=== PATIENT | female | born 1985 | race Two or more races ===

== ENCOUNTER 2016-06-15 15:39 | Inpatient (IN) | payer MEDICAID ==
[2016-06-15 15:58] VITALS: BP 121/68
--- NOTE | 2016-06-15 16:12 | ED Physician Chart ---
Chief Complaint/HPI - Patient Information Date Seen:: 06/15/16 Time Seen:: 16:07 Chief Complaint:: abd p History of Present Illness:: pt her for abd p x 3 hrs. pain is sev burning in ruq. pt gets similar pain about 4x/month. she admits to a hx of gallstones but cant tell me much more. she has apparently not bee to a surgeon and is not connected to a pmd. she has had sev trips to other EDs for this pain but is vague about the history. pt speaks sp...however even w friend interpreting ther is not much flow of information about prior workup. ? if fever. no diarhea, no constipation, no urine change Allergies:: Allergies Allergy/AdvReac Type Severity Reaction Status Date / Time No Known Allergies Allergy Verified 06/15/16 15:55 Vitals:: Vital Signs - 8 hr 06/15/16 15:58 BP 121/68 Historian:: Patient, Friend Review of Systems - Review of Systems General/Constitutional: No fever, No chills, No weight loss, No weakness, No diaphoresis, No edema, No loss of appetite Skin: No skin lesions, No rash, No bruising Head: No headache, No light-headedness Eyes: No loss of vision, No pain, No diplopia ENT: No earache, No nasal drainage, No sore throat, No tinnitus Neck: No neck pain, No swelling, No thyromegaly, No stiffness, No mass noted Cardio Vascular: No chest pain, No palpitations, No PND, No orthopnea, No edema Pulmonary: No SOB, No cough, No sputum, No wheezing GI: Nausea, Vomiting, No diarrhea, Pain, No melena, No hematochezia, No constipation, No hematemesis G/U: No dysuria, No frequency, No hematuria Musculoskeletal: No bone or joint pain, No back pain, No muscle pain Endocrine: No polyuria, No polydipsia Psychiatric: No prior psych history, No depression, No anxiety, No suicidal ideation Hematopoietic: No bruising, No lymphadenopathy Allergic/Immuno: No urticaria, No angioedema Neurological: No syncope, No focal symptoms, No weakness, No paresthesia, No headache, No seizure, No dizziness, No confusion, No vertigo Past Medical History - Past Medical History Past Medical History: Other (gallstones. (last 5yrs ago..denies current risk of gravd)) Social History: No Alcohol Medication: Reviewed Family Medical History - Family Member Aunt Ethnicity: Hx Family Diabetes: Yes Physical Exam - Physical Examination General/Constitutional: Awake, Well-developed, well-nourished, Alert, No distress, GCS 15, Non-toxic appearing, Ambulatory Other Gen/Cons comments:: mod obese. seems uncomfortable. nontoxic. alert. Head: Atraumatic Eyes: Lids, conjuctiva normal, PERRL, EOMI Skin: Nl inspection, No rash, No skin lesions, No ecchymosis, Well hydrated, No lymphadenopathy ENMT: External ears, nose nl, Nasal exam nl, Lips, teeth, gums nl Neck: Nontender, Full ROM w/o pain, No JVD, No nuchal rigidity, No bruit, No mass, No stridor Respiratory: Nl effort/Exclusion, Clear to Auscultation, No Wheeze/Rhonchi/Rales Cardio Vascular: RRR, No murmur, gallop, rubs, NL S1 S2 GI: No tenderness/rebounding/guarding, No organomegaly, No hernia, Normal BS's, Nondistended, No mass/bruits, No McBurney tenderness : No CVA tenderness Extremities: No tenderness or effusion, Full ROM, normal strength in all extremities, No edema, Normal digits & nails Neuro/Psych: Alert/oriented, DTR's symmetric, Normal sensory exam, Normal motor strength, Judgement/insight normal, Mood normal, Normal gait, No focal deficits Misc: normal gait, Normal back, No paraspinal tenderness Labs/Radiology/EKG Results - Lab Results Results: Laboratory Tests 06/15/16 06/15/16 06/15/16 16:18 16:18 16:18 WBC 8.5 RBC 4.55 Hgb 13.6 Hct 40.5 MCV 89.0 MCH 29.8 MCHC Differential 33.5 RDW 11.4 L Plt Count 265 MPV 8.2 Neutrophils % 79.8 Lymphocytes % 13.2 L Monocytes % 5.5 Eosinophils % 0.9 Basophils % 0.6 Sodium 135 L Potassium 3.6 Chloride 105 Carbon Dioxide 25.5 Anion Gap 8.1 BUN 13 Creatinine 0.6 Est GFR ( Amer) > 60.0 Est GFR (Non-Af Amer) > 60.0 BUN/Creatinine Ratio 21.7 Glucose 115 H Calcium 9.4 Total Bilirubin 0.5 AST 124 H ALT 61 H Alkaline Phosphatase 86 Total Protein 7.7 Albumin 4.5 Globulin 3.2 Albumin/Globulin Ratio 1.4 Lipase 53 - Radiology Results Results: us abd- gb is full of stones. pos rad wynn. borderline wall edema. no free fluid. us abd otw ok. ED Septic Shock - . Is Septic Shock (SBP<90, OR Lactate>4 mmol\L) present?: No - <6hrs of presentation: Vital Signs: Vital Signs - 8 hr 06/15/16 15:58 BP 121/68 Reassessment (Disposition) - Reassessment Reassessment:: (5;17p) results reviewed w pt. she still has pain now but better and refuses more pain med rt now. does want me to talk w intake drs. d/w dr sweet...6;52p....pt will admit. Reassessment Condition:: Improved - Diagnosis Diagnosis:: gallstones elevated LFTs biliary colic - Patient Disposition Admitted to:: Med/Surg Condition at Disposition:: Improved
[2016-06-15] MEDS ORDERED: Maalox 30 mL Cup PO ONE (16:13)
[2016-06-15] MEDS ORDERED: Sodium Chloride 0.9% 1,000 ML IV ONE (16:13)
[2016-06-15 16:33] LABS: % BASOPHILS 0.6 % (0.0-2.0); % EOSINOPHILS 0.9 % (0.0-5.0); % LYMPHOCYTES 13.2 % (20.0-50.0); % MONOCYTES 5.5 % (2.0-10.0); % NEUTROPHILS 79.8 % (40.0-80.0); HEMATOCRIT 40.5 % (35.0-45.0); HEMOGLOBIN 13.6 gm/dL (11.7-15.5); MEAN CORPUSCULAR HEMOGLOBIN 29.8 pg (27.0-31.0); MEAN CORPUSCULAR HGB CONC 33.5 pg (28.0-36.0); MEAN PLATELET VOLUME 8.2 fl; NEUTROPHILE ABSOLUTE 6.7 Th/cmm (1.8-8.0); PLATELET COUNT 265 Th/cmm (150-400); RED BLOOD COUNT 4.55 Mil/cmm (3.80-5.10); RED CELL DISTRIBUTION WIDTH 11.4 % (11.5-20.0); WHITE BLOOD COUNT 8.5 Th/cmm (4.8-10.8)
[2016-06-15 16:53] LABS: ALB/GLOB RATIO 1.4 (1.0-1.8); ALKALINE PHOSPHATASE 86 U/L (34-104); ANION GAP 8.1 (7.0-16.0); BILIRUBIN,TOTAL 0.5 mg/dL (0.3-1.0); BUN - UREA NITROGEN 13 mg/dL (7-25); BUN/CREATININE RATIO 21.7; CALCIUM SERUM 9.4 mg/dL (8.6-10.3); CARBON DIOXIDE 25.5 mEq/L (21.0-31.0); CHLORIDE 105 mEq/L (98-107); CREATININE - SERUM 0.6 mg/dL (0.6-1.2); GLUCOSE 115 mg/dL (70-105); POTASSIUM SERUM 3.6 mEq/L (3.5-5.1); SGOT 124 U/L (13-39); SGPT/ALT 61 U/L (7-52); SODIUM SERUM 135 mEq/L (136-145)
[2016-06-15] MEDS ORDERED: Maalox 30 mL Cup ONE (17:09)
[2016-06-15 19:02] LABS: URINE BILIRUBIN NEGATIVE (NEGATIVE); URINE BLOOD NEGATIVE (NEGATIVE); URINE COLOR YELLOW; URINE GLUCOSE (UA) NEGATIVE (NEGATIVE); URINE KETONE NEGATIVE (NEGATIVE); URINE PROTEIN NEGATIVE (NEGATIVE); URINE UROBILINOGEN 0.2 E.U./dL (0.2 - 1.0)
[2016-06-15 19:03] LABS: URINE BACTERIA NONE SEEN /hpf (NONE SEEN); URINE EPITHELIAL CELLS NONE SEEN /lpf (FEW); URINE RBC NONE SEEN /hpf (0-5)
[2016-06-15] MEDS: D5-0.45NS 1,000 ML IV ONE (21:30)
--- NOTE | 2016-06-16 00:12 | Admit Criteria Form ---
Admit Criteria Forms - Admit Criteria Diagnosis: ABDOMINAL PAIN Clinical Indications for Admission to Inpatient Care (Place 'X' for any and all applicable criteria): Admission is indicated for ANY ONE of the following(1)(2)(3)(4)(5): [X]I. Inpatient admission required rather than observation care (Also use Abdominal Pain: Observation Care, as appropriate) because of ANY ONE of the following: [ ]a) Severe pain requiring acute inpatient management [ ]b) Identification of etiology/finding that requires inpatient care (eg, aortic dissection, free air) [ ]c) Absent bowel sounds with complete ileus(6) [ ]d) Suspected toxic megacolon [ ]e) Severe electrolyte abnormalities requiring inpatient care [ ]f) High fever or infection requiring inpatient admission as indicated by ANY ONE of following(7)(8): [ ] i) Appropriate outpatient or observational care antimicrobial treatment unavailable, not effective, or not feasible [ ] ii) Documented bacteremia [ ] iii) Temperature > 104.9 degrees F (oral) [ ] iv) T >103.1 F (oral) or < 96.8 F(rectal) that does not respond to all emergency treatment measures [ ]g) Signs of intestinal obstruction [B] [ ]h) Hemodynamic instability [ ]i) IV fluid to replace significant ongoing losses (greater than 3 L/m2 per day) (12)(13) [ ]j) Percutaneous or open drainage (eg, abscess, biliary tract ) procedures [ ]k) Parenteral nutrition regimen that must be implemented on inpatient basis [X]l) Other condition,treatment or monitoring requiring inpatient admission. [ ]II. Peritoneal signs present [ ]III. Surgery needed that cannot be performed on an ambulatory basis. [ ]IV. Evaluation requires patient to not eat or drink for extended period ( eg, more than 24 hours). [ ]V. Contraindications and/or Inappropriate clinical situations for Observational Care in patients with abdominal pain, when ANY ONE of the following is required: [ ]a) Thorough evaluation is required to prevent catastrophic events due to delays in diagnosing (e.g.Mesenteric ischemia) 1,3 [ ]b) Patient with severe pathology or with chronic symptoms unlikely to improve in the ED stay (3) [ ]. General contraindications and/or Inappropriate clinical situations for Observational Care in patients with abdominal pain, when ANY ONE of the following is required: [ ]a) Prediction of prolongation of LOS based on ANY ONE of the following may be considered as a contraindication for observational care 2, 3, 4, 5, 6, 7, 8, 9, 10, 11 [ ]i) Age > 65 yrs. [ ]ii) Patient arriving by ambulance [ ]iii) Patient with high acuity [ ]iv) Patient requiring vital sign monitoring [ ]v) Patient on IV medication [ ]b) Systolic blood pressures 180mmHg 3,12 [ ]c) Patient with altered mental status including delirium and other alteration of consciousness, (3) [ ]d) Patient whose discharge disposition will be to a jail home or rehabilitation home should not be managed in Emergency Department Observation Unit. CMS rule requires 3 days hospital stay before such placement.3,13 [ ]e) Patient with failure to thrive due to broad array of etiologies 3,16,17 [ ]f) Inability to ambulate 3,14 Extended stay beyond goal length of stay may be needed for(2)(3): [ ]a) Persistent abdominal pain with suspected intra-abdominal process [ ]b) Diagnosed condition requiring continued stay (e.g., pancreatitis, complicated diverticulitis) [ ]c) Surgery (e.g., colectomy) The original [employer] content created by [employer] has been revised. The portions of the content which have been revised are identified through the use of italic text or in bold, and [facility] has neither reviewed nor approved the modified material.All other unmodified content is copyright [employer]. Please see references footnoted in the original [facility] edition 2016 Admit Criteria Met?: Yes
--- NOTE | 2016-06-16 10:52 | Diagnostic Imaging Report ---
Radial nuclide biliary scan (HIDA scan) HISTORY: Pain 5.1 mCi technetium labeled biliary age and was used in the exam. There is normal hepatic uptake and clearance. There is normal excretion of nuclide into the common bile duct, gallbladder, and small bowel. IMPRESSION: Normal examination
--- NOTE | 2016-06-16 12:14 | Diagnostic Imaging Report ---
Abdominal ultrasound HISTORY: Pain Exam is limited due to considerable bowel gas and heavy patient respiration. Incomplete visualization of the liver. No obvious focal lesions. Intraluminal echogenic density seen in the region of the gallbladder fossa with extensive acoustic shadowing. Findings are probably associated with cholelithiasis. No biliary dilatation proximal common bile duct equals 3 mm). The kidneys appear normal bilaterally. No other retroperitoneal or intra-abdominal abnormalities. IMPRESSION: 1. Incomplete visualization of the gallbladder. However, there is extensive echogenic density and acoustic shadowing originating from the gallbladder fossa most suggestive cholelithiasis.
[2016-06-16] MEDS: D5-0.45NS 1,000 ML IV ONE (13:45)
[2016-06-16] MEDS ORDERED: Lactated Ringer 1,000 ML IV ONE (14:00)
[2016-06-16] MEDS ORDERED: Meperidine 25 mg/mL 1mL Syr IVP ONE (14:00)
[2016-06-16] MEDS ORDERED: Midazolam 1mg/ml 2 ml vial IV ONE (15:02)
[2016-06-16] MEDS ORDERED: Meperidine 50 mg/mL 1mL Syr ONE (15:03)
[2016-06-16] MEDS ORDERED: Bupivacaine 0.5% W/Ep 10 mL Vial ONE (15:41)
[2016-06-16] MEDS ORDERED: Neostigmine 10mg/10mL Vial ONE (15:43)
[2016-06-16] MEDS: D5-0.45NS 1,000 ML IV SCH (17:41)
--- NOTE | 2016-06-16 17:46 | Consultation ---
REFERRING PHYSICIAN: Dr. Mccormick. REASON FOR CONSULTATION: Gallstones. Thank you for referring this patient to me. HISTORY OF PRESENT ILLNESS: This is a 31-year-old female who comes in because of abdominal pain few hours prior to admission. She has, however, been having pain several times a month for the last several years. She works and claims she has been unable to visit her doctor. Consequently, no diagnosis been made. LABORATORY STUDIES: Show CBC to be normal. The liver function test, slightly high AST and ALT. Bilirubin is normal. Ultrasound of the gallbladder showed stones and HIDA scan is normal. PHYSICAL EXAMINATION: Tender right upper quadrant. IMPRESSION: Cholecystolithiasis. PLAN: We will do laparoscopic versus open cholecystectomy and informed consent was discussed including possible complications. JOB# [id number]
[2016-06-16] MEDS: Morphine Sulfate 4 mg/mL 1mL Syr IV PRN (20:55)
--- NOTE | 2016-06-17 01:25 | History & Physical ---
CHIEF COMPLAINT: Right upper quadrant abdominal pain. HISTORY OF PRESENT ILLNESS: This is a 31-year-old female previously healthy, was brought into the Emergency Room at [facility] for evaluation of persistent severe right upper quadrant abdominal pain. The patient was evaluated in the Emergency Room and diagnosed with acute cholecystitis, had an ultrasound of the abdomen done which was suggestive of extensive echogenic density and shadowing originating from the gallbladder, suggestive of cholelithiasis. The patient was evaluated by general surgery and diagnosed with symptomatic gallstone and subsequently underwent a laparoscopic cholecystectomy today. The patient is postop day #0, doing fine, denies any complaints, family was at bedside. PAST MEDICAL HISTORY: None FAMILY HISTORY: Non contributory SOCIAL HISTORY: Lives at home. Denies any alcohol, tobacco or street drug use. CURRENT MEDICATIONS: Medication reconciliation is reviewed. ALLERGIES: No known drug allergies. REVIEW OF SYSTEMS: The patient denies any fever, no chills, no nausea and no vomiting. No abdominal pain or any other complaints. PHYSICAL EXAMINATION: VITAL SIGNS: Temperature 98.2, pulse 80 respirations 19 and blood pressure 120/80 GENERAL APPEARANCE: The patient does not seem in acute distress. HEART: S1 and S2 normal. LUNGS: Clear. ABDOMEN: Soft, nontender and no guarding. NEUROLOGIC: The patient is alert and awake. Moves all. No focal deficits. AVAILABLE LABORATORY DATA: WBC is 8.5, hemoglobin 13.6 and hematocrit 40.5. potassium is 3.6, BUN 13, creatinine 0.6, AST 125, ALT 61 and lipase 53. ASSESSMENT: Symptomatic gallstones, status post laparoscopic cholecystectomy postop day #0. PLAN: The patient will be started on clear liquids, advance diet as tolerated. Morphine and Zofran as needed. Follow up labs in the morning. Plan of care discussed with nursing staff. Family was updated on the patient's condition. JOB# [id number] [facility]
--- NOTE | 2016-06-17 01:32 | Consultation ---
INPATIENT GASTROINTESTINAL CONSULTATION REFERRING PHYSICIAN: Dr. Ousmane Mccormick. REASON FOR CONSULTATION: Gallstones. HISTORY OF PRESENT ILLNESS: This is a 31-year-old female who has been having on and off abdominal pain over several months, but got progressively worse in the right upper quadrant associated with nausea and vomiting, but no hematemesis or coffee-ground emesis. The patient therefore came to the hospital. PAST MEDICAL HISTORY: Gallstones. PAST SURGICAL HISTORY: None to abdomen. FAMILY HISTORY: Noncontributory. SOCIAL HISTORY: Denies tobacco, alcohol or IV drug usage. ALLERGIES: None. CURRENT MEDICATIONS: Morphine and Zofran. REVIEW OF SYSTEMS: Ten point review of system was performed and the pertinent positive was the right upper quadrant pain. All the systems were otherwise negative. PHYSICAL EXAMINATION: VITAL SIGNS: Temperature 97.9, breathing 20, pulse of 80, blood pressure 115/79 and satting 97%. GENERAL: In no apparent distress. EYES: Anicteric, normal conjunctivae. HEENT: Normocephalic and atraumatic. Moist mucous membranes. NECK: Soft. CHEST: Clear, normal effort. CARDIOVASCULAR: Regular rate and rhythm. ABDOMEN: Soft, nondistended and mildly tender right upper quadrant. No rebound or guarding SKIN: Warm and dry. EXTREMITIES: Reveal no cyanosis. PSYCHOLOGIC: Alert and oriented x 3. LABORATORY DATA: Show white count 8.5, hemoglobin 13.6 and platelets are 265. Total bilirubin 0.5, AST 124, ALT 61 and alk phos 86. Lipase is 63. IMAGING STUDIES: HIDA scan was negative. Abdominal ultrasound showed gallstones and common bile duct that measured 3 mm and was nondilated. IMPRESSION: This is a 31-year-old female with gallstones, likely symptomatic, no evidence of any acute cholecystitis per her HIDA scan. Ultrasound does not show any dilated common bile duct and the bilirubin is not elevated. PLAN: 1. Cholecystectomy, per surgery. 2. Follow LFTs until resolves completely. 3. Continue supportive care. 4. Defer other management to the primary doctor. Thank you for allowing me to participate. Please call me if any questions. JOB# [id number]
[2016-06-17] MEDS: Morphine Sulfate 4 mg/mL 1mL Syr IV PRN ×3 (03:22→20:51)
[2016-06-17 06:51] LABS: % BASOPHILS 0.3 % (0.0-2.0); % EOSINOPHILS 1.4 % (0.0-5.0); % LYMPHOCYTES 23.7 % (20.0-50.0); % MONOCYTES 7.8 % (2.0-10.0); % NEUTROPHILS 66.8 % (40.0-80.0); MEAN CELL VOLUME 87.7 fl (81-100); MEAN CORPUSCULAR HEMOGLOBIN 30.2 pg (27.0-31.0); MEAN CORPUSCULAR HGB CONC 34.5 pg (28.0-36.0); MEAN PLATELET VOLUME 8.6 fl; NEUTROPHILE ABSOLUTE 5.5 Th/cmm (1.8-8.0); RED BLOOD COUNT 3.79 Mil/cmm (3.80-5.10); RED CELL DISTRIBUTION WIDTH 11.2 % (11.5-20.0); WHITE BLOOD COUNT 8.1 Th/cmm (4.8-10.8)
[2016-06-17 07:17] LABS: ALB/GLOB RATIO 1.3 (1.0-1.8); ALKALINE PHOSPHATASE 59 U/L (34-104); ANION GAP 5.1 (7.0-16.0); BILIRUBIN,TOTAL 0.4 mg/dL (0.3-1.0); BUN - UREA NITROGEN 5 mg/dL (7-25); BUN/CREATININE RATIO 8.3; CALCIUM SERUM 8.6 mg/dL (8.6-10.3); CARBON DIOXIDE 27.3 mEq/L (21.0-31.0); CHLORIDE 106 mEq/L (98-107); CREATININE - SERUM 0.6 mg/dL (0.6-1.2); GLUCOSE 107 mg/dL (70-105); POTASSIUM SERUM 3.4 mEq/L (3.5-5.1); SGOT 31 U/L (13-39); SGPT/ALT 39 U/L (7-52); SODIUM SERUM 135 mEq/L (136-145)
[2016-06-17 07:33] LABS: HEMATOCRIT 33.3 % (35.0-45.0); HEMOGLOBIN 11.5 gm/dL (11.7-15.5)
[2016-06-17 07:34] LABS: PLATELET COUNT 211 Th/cmm (150-400)
[2016-06-17 07:37] LABS: ALB/GLOB RATIO 1.3 (1.0-1.8); BILIRUBIN,TOTAL 0.4 mg/dL (0.3-1.0)
[2016-06-17 07:51] LABS: BILIRUBIN,DIRECT 0.07 mg/dL (0.0-0.2)
[2016-06-17] MEDS: D5-0.45NS 1,000 ML IV SCH (08:07)
--- NOTE | 2016-06-17 12:58 | General Progress Note ---
Subjective - Review of Systems Service Date: 06/17/16 Events since last encounter: labs ok may DC on low fat diet for 30 days to my office 1 week Objective - Results Result Diagrams: 06/17/16 05:55 06/17/16 05:55 Recent Labs: Laboratory Last Values WBC 8.1 Th/cmm (4.8-10.8) 06/17/16 05:55 RBC 3.79 Mil/cmm (3.80-5.10) L 06/17/16 05:55 Hgb 11.5 gm/dL (11.7-15.5) L D 06/17/16 05:55 Hct 33.3 % (35.0-45.0) L D 06/17/16 05:55 MCV 87.7 fl (81-100) 06/17/16 05:55 MCH 30.2 pg (27.0-31.0) 06/17/16 05:55 MCHC Differential 34.5 pg (28.0-36.0) 06/17/16 05:55 RDW 11.2 % (11.5-20.0) L 06/17/16 05:55 Plt Count 211 Th/cmm (150-400) D 06/17/16 05:55 MPV 8.6 fl 06/17/16 05:55 Neutrophils % 66.8 % (40.0-80.0) 06/17/16 05:55 Lymphocytes % 23.7 % (20.0-50.0) 06/17/16 05:55 Monocytes % 7.8 % (2.0-10.0) 06/17/16 05:55 Eosinophils % 1.4 % (0.0-5.0) 06/17/16 05:55 Basophils % 0.3 % (0.0-2.0) 06/17/16 05:55 Sodium 135 mEq/L (136-145) L 06/17/16 05:55 Potassium 3.4 mEq/L (3.5-5.1) L 06/17/16 05:55 Chloride 106 mEq/L (98-107) 06/17/16 05:55 Carbon Dioxide 27.3 mEq/L (21.0-31.0) 06/17/16 05:55 Anion Gap 5.1 (7.0-16.0) L 06/17/16 05:55 BUN 5 mg/dL (7-25) L 06/17/16 05:55 Creatinine 0.6 mg/dL (0.6-1.2) 06/17/16 05:55 Est GFR ( Amer) > 60.0 ml/min (>90) 06/17/16 05:55 Est GFR (Non-Af Amer) > 60.0 ml/min 06/17/16 05:55 BUN/Creatinine Ratio 8.3 06/17/16 05:55 Glucose 107 mg/dL (70-105) H 06/17/16 05:55 Hemoglobin A1c % 4.9 % (4.0-6.0) 06/15/16 16:18 Calcium 8.6 mg/dL (8.6-10.3) 06/17/16 05:55 Total Bilirubin 0.4 mg/dL (0.3-1.0) 06/17/16 05:55 Direct Bilirubin 0.07 mg/dL (0.0-0.2) 06/17/16 05:55 AST 31 U/L (13-39) 06/17/16 05:55 ALT 40 U/L (7-52) 06/17/16 05:55 Alkaline Phosphatase 59 U/L (34-104) 06/17/16 05:55 Total Protein 5.8 gm/dL (6.0-8.3) L 06/17/16 05:55 Albumin 3.3 gm/dL (3.7-5.3) L 06/17/16 05:55 Globulin 2.5 gm/dL 06/17/16 05:55 Albumin/Globulin Ratio 1.3 (1.0-1.8) 06/17/16 05:55 Lipase 53 U/L (11-82) 06/15/16 16:18 Urine Source CLEAN C 06/15/16 17:34 Urine Color YELLOW 06/15/16 17:34 Urine Clarity CLEAR (CLEAR) 06/15/16 17:34 Urine pH 7.0 06/15/16 17:34 Ur Specific Warren 1.015 (1.005-1.030) 06/15/16 17:34 Urine Protein NEGATIVE mg/dL (NEGATIVE) 06/15/16 17:34 Urine Glucose (UA) NEGATIVE mg/dL (NEGATIVE) 06/15/16 17:34 Urine Ketones NEGATIVE mg/dL (NEGATIVE) 06/15/16 17:34 Urine Blood NEGATIVE (NEGATIVE) 06/15/16 17:34 Urine Nitrate NEGATIVE (NEGATIVE) 06/15/16 17:34 Urine Bilirubin NEGATIVE (NEGATIVE) 06/15/16 17:34 Urine Urobilinogen 0.2 E.U./dL (0.2 - 1.0) 06/15/16 17:34 Ur Leukocyte Esterase TRACE (NEGATIVE) H 06/15/16 17:34 Urine RBC NONE SEEN /hpf (0-5) 06/15/16 17:34 Urine WBC 2-5 /hpf (0-5) 06/15/16 17:34 Ur Epithelial Cells NONE SEEN /lpf (FEW) 06/15/16 17:34 Urine Bacteria NONE SEEN /hpf (NONE SEEN) 06/15/16 17:34 Urine Test NEGATIVE 06/15/16 17:34 - Physical Exam Vitals and I&O: Vital Signs Temp 99 F 06/17/16 08:00 Pulse 83 06/17/16 08:00 Resp 19 06/17/16 08:00 BP 107/58 06/17/16 08:00 Pulse Ox 99 06/17/16 08:00 Intake & Output 06/16/16 06/17/16 06/17/16 18:59 06:59 18:59 Intake Total 1000 250 200 Balance 1000 250 200 Intake: Intake, IV Amount 1000 D5-0.45NS 1,000 ml @ 80 1000 mls/hr IV .[id number] Rx #:[id number] Oral 0 250 200 Other: # Voids 3 2 # Bowel Movements 0 Stool Characteristics Soft Active Medications: Current Medications Dextrose/Sodium Chloride (D5-0.45ns) 1,000 mls @ 80 mls/hr IV .[id number] POONAM Stop: 08/15/16 17:38 Last Admin: 06/17/16 08:07 Dose: Not Given Morphine Sulfate (Morphine) 3 mg IV Q3H PRN PRN Reason: Pain (Mild) Stop: 08/14/16 20:29 Last Admin: 06/17/16 03:22 Dose: 3 mg Ondansetron HCl (Zofran) 4 mg IV Q6H PRN PRN Reason: nausea/vomiting Stop: 08/14/16 19:59 Last Admin: 06/17/16 10:57 Dose: 4 mg
--- NOTE | 2016-06-17 14:54 | Operative Report ---
PREOPERATIVE DIAGNOSES: Calculous cholecystitis. POSTOPERATIVE DIAGNOSES: Calculous cholecystitis. OPERATION DONE: Laparoscopic cholecystectomy. SURGEON: River Hu M.D. RADIO MAINTAINER: Dr. Person. ANESTHESIA: General. ANESTHESIOLOGIST: Hossein Merida M.D. ESTIMATED BLOOD LOSS: 20 mL. INDICATIONS FOR SURGERY: The patient with severe abdominal pain, gallstones on ultrasound and HIDA scan, which was normal. Informed consent discussed with the patient and family regarding possible complications including infection, bleeding, bile leak, other complications related to anesthesia, etc. The patient understands. DETAIL OF PROCEDURE: The patient was given general anesthesia. The abdomen was prepped with ChloraPrep and draped in appropriate manner. An infraumbilical incision was made along the skin line. A Veress needle was inserted. Insufflation of CO2 was carried successfully. A 10 mm trocar was placed through this and the scope was introduced. There was good visualization of the intraabdominal cavity. Another 10 mm trocar was placed in upper abdomen at the midline and two 5 mm trocars were placed in the right flank. The operating table is elevated the head and turned to the left side. The fundus and infundibulum of the gallbladder was grasped and blunt dissection was carried out at the infundibulum until the cystic structures were identified. The cystic duct was clipped 3 times proximally and once distally and divided. Cystic artery was next identified and clipped and divided. Retrograde dissection was carried out. There was some spillage of stones, which were rather small and this were later on, scooped up and aspirated with suction. Gallbladder was removed without difficulty via Endobag. Following satisfactory hemostasis and irrigation and removal of all visible stones, the abdominal incisions were closed with ____ 4-0 Vicryl and the skin was closed. JOB# [id number]
--- NOTE | 2016-06-17 16:13 | General Progress Note ---
Subjective - Review of Systems Service Date: 06/17/16 Subjective: Patient was seen and examined family was at the bedside patient stated she feels very weak no BM yet afebrile denied chest pain or sob Objective - Results Result Diagrams: 06/17/16 05:55 06/17/16 05:55 Recent Labs: Laboratory Last Values WBC 8.1 Th/cmm (4.8-10.8) 06/17/16 05:55 RBC 3.79 Mil/cmm (3.80-5.10) L 06/17/16 05:55 Hgb 11.5 gm/dL (11.7-15.5) L D 06/17/16 05:55 Hct 33.3 % (35.0-45.0) L D 06/17/16 05:55 MCV 87.7 fl (81-100) 06/17/16 05:55 MCH 30.2 pg (27.0-31.0) 06/17/16 05:55 MCHC Differential 34.5 pg (28.0-36.0) 06/17/16 05:55 RDW 11.2 % (11.5-20.0) L 06/17/16 05:55 Plt Count 211 Th/cmm (150-400) D 06/17/16 05:55 MPV 8.6 fl 06/17/16 05:55 Neutrophils % 66.8 % (40.0-80.0) 06/17/16 05:55 Lymphocytes % 23.7 % (20.0-50.0) 06/17/16 05:55 Monocytes % 7.8 % (2.0-10.0) 06/17/16 05:55 Eosinophils % 1.4 % (0.0-5.0) 06/17/16 05:55 Basophils % 0.3 % (0.0-2.0) 06/17/16 05:55 Sodium 135 mEq/L (136-145) L 06/17/16 05:55 Potassium 3.4 mEq/L (3.5-5.1) L 06/17/16 05:55 Chloride 106 mEq/L (98-107) 06/17/16 05:55 Carbon Dioxide 27.3 mEq/L (21.0-31.0) 06/17/16 05:55 Anion Gap 5.1 (7.0-16.0) L 06/17/16 05:55 BUN 5 mg/dL (7-25) L 06/17/16 05:55 Creatinine 0.6 mg/dL (0.6-1.2) 06/17/16 05:55 Est GFR ( Amer) > 60.0 ml/min (>90) 06/17/16 05:55 Est GFR (Non-Af Amer) > 60.0 ml/min 06/17/16 05:55 BUN/Creatinine Ratio 8.3 06/17/16 05:55 Glucose 107 mg/dL (70-105) H 06/17/16 05:55 Hemoglobin A1c % 4.9 % (4.0-6.0) 06/15/16 16:18 Calcium 8.6 mg/dL (8.6-10.3) 06/17/16 05:55 Total Bilirubin 0.4 mg/dL (0.3-1.0) 06/17/16 05:55 Direct Bilirubin 0.07 mg/dL (0.0-0.2) 06/17/16 05:55 AST 31 U/L (13-39) 06/17/16 05:55 ALT 40 U/L (7-52) 06/17/16 05:55 Alkaline Phosphatase 59 U/L (34-104) 06/17/16 05:55 Total Protein 5.8 gm/dL (6.0-8.3) L 06/17/16 05:55 Albumin 3.3 gm/dL (3.7-5.3) L 06/17/16 05:55 Globulin 2.5 gm/dL 06/17/16 05:55 Albumin/Globulin Ratio 1.3 (1.0-1.8) 06/17/16 05:55 Lipase 53 U/L (11-82) 06/15/16 16:18 Urine Source CLEAN C 06/15/16 17:34 Urine Color YELLOW 06/15/16 17:34 Urine Clarity CLEAR (CLEAR) 06/15/16 17:34 Urine pH 7.0 06/15/16 17:34 Ur Specific [place] 1.015 (1.005-1.030) 06/15/16 17:34 Urine Protein NEGATIVE mg/dL (NEGATIVE) 06/15/16 17:34 Urine Glucose (UA) NEGATIVE mg/dL (NEGATIVE) 06/15/16 17:34 Urine Ketones NEGATIVE mg/dL (NEGATIVE) 06/15/16 17:34 Urine Blood NEGATIVE (NEGATIVE) 06/15/16 17:34 Urine Nitrate NEGATIVE (NEGATIVE) 06/15/16 17:34 Urine Bilirubin NEGATIVE (NEGATIVE) 06/15/16 17:34 Urine Urobilinogen 0.2 E.U./dL (0.2 - 1.0) 06/15/16 17:34 Ur Leukocyte Esterase TRACE (NEGATIVE) H 06/15/16 17:34 Urine RBC NONE SEEN /hpf (0-5) 06/15/16 17:34 Urine WBC 2-5 /hpf (0-5) 06/15/16 17:34 Ur Epithelial Cells NONE SEEN /lpf (FEW) 06/15/16 17:34 Urine Bacteria NONE SEEN /hpf (NONE SEEN) 06/15/16 17:34 Urine Test NEGATIVE 06/15/16 17:34 - Physical Exam Vitals and I&O: Vital Signs Temp 99 F 06/17/16 08:00 Pulse 83 06/17/16 08:00 Resp 19 06/17/16 08:00 BP 107/58 06/17/16 08:00 Pulse Ox 99 06/17/16 08:00 Intake & Output 06/16/16 06/17/16 06/17/16 18:59 06:59 18:59 Intake Total 1000 250 200 Balance 1000 250 200 Intake: Intake, IV Amount 1000 D5-0.45NS 1,000 ml @ 80 1000 mls/hr IV .[id number] ONE Rx #:[id number] Oral 0 250 200 Other: # Voids 3 2 # Bowel Movements 0 Stool Characteristics Soft Active Medications: Current Medications Dextrose/Sodium Chloride (D5-0.45ns) 1,000 mls @ 80 mls/hr IV .[id number] POONAM Stop: 08/15/16 17:38 Last Admin: 06/17/16 08:07 Dose: Not Given Morphine Sulfate (Morphine) 3 mg IV Q3H PRN PRN Reason: Pain (Mild) Stop: 08/14/16 20:29 Last Admin: 06/17/16 03:22 Dose: 3 mg Ondansetron HCl (Zofran) 4 mg IV Q6H PRN PRN Reason: nausea/vomiting Stop: 08/14/16 19:59 Last Admin: 06/17/16 10:57 Dose: 4 mg Cardiovascular: Regular rate Lungs: Clear to auscultation Abdomen: Soft, no Tender Assessment/Plan - Problem List Patient Problems: All Active Problems Gall stones (Acute) K80.20 S/P laparoscopic cholecystectomy (Acute) Z90.49 - Plan Plan: Patient doing fine Advance diet as tolerated If better dc home tomorrow Plan of care discussed with pt/family
[2016-06-18] MEDS: Morphine Sulfate 4 mg/mL 1mL Syr IV PRN (06:09)
--- NOTE | 2016-06-18 12:41 | General Progress Note ---
Subjective - Review of Systems Service Date: 06/18/16 Events since last encounter: labs ok tolerating diet, no BM may DC on low fat diet Fleet enema prior to DC Objective - Results Result Diagrams: 06/17/16 05:55 06/17/16 05:55 Recent Labs: Laboratory Last Values WBC 8.1 Th/cmm (4.8-10.8) 06/17/16 05:55 RBC 3.79 Mil/cmm (3.80-5.10) L 06/17/16 05:55 Hgb 11.5 gm/dL (11.7-15.5) L D 06/17/16 05:55 Hct 33.3 % (35.0-45.0) L D 06/17/16 05:55 MCV 87.7 fl (81-100) 06/17/16 05:55 MCH 30.2 pg (27.0-31.0) 06/17/16 05:55 MCHC Differential 34.5 pg (28.0-36.0) 06/17/16 05:55 RDW 11.2 % (11.5-20.0) L 06/17/16 05:55 Plt Count 211 Th/cmm (150-400) D 06/17/16 05:55 MPV 8.6 fl 06/17/16 05:55 Neutrophils % 66.8 % (40.0-80.0) 06/17/16 05:55 Lymphocytes % 23.7 % (20.0-50.0) 06/17/16 05:55 Monocytes % 7.8 % (2.0-10.0) 06/17/16 05:55 Eosinophils % 1.4 % (0.0-5.0) 06/17/16 05:55 Basophils % 0.3 % (0.0-2.0) 06/17/16 05:55 Sodium 135 mEq/L (136-145) L 06/17/16 05:55 Potassium 3.4 mEq/L (3.5-5.1) L 06/17/16 05:55 Chloride 106 mEq/L (98-107) 06/17/16 05:55 Carbon Dioxide 27.3 mEq/L (21.0-31.0) 06/17/16 05:55 Anion Gap 5.1 (7.0-16.0) L 06/17/16 05:55 BUN 5 mg/dL (7-25) L 06/17/16 05:55 Creatinine 0.6 mg/dL (0.6-1.2) 06/17/16 05:55 Est GFR ( Amer) > 60.0 ml/min (>90) 06/17/16 05:55 Est GFR (Non-Af Amer) > 60.0 ml/min 06/17/16 05:55 BUN/Creatinine Ratio 8.3 06/17/16 05:55 Glucose 107 mg/dL (70-105) H 06/17/16 05:55 Hemoglobin A1c % 4.9 % (4.0-6.0) 06/15/16 16:18 Calcium 8.6 mg/dL (8.6-10.3) 06/17/16 05:55 Total Bilirubin 0.4 mg/dL (0.3-1.0) 06/17/16 05:55 Direct Bilirubin 0.07 mg/dL (0.0-0.2) 06/17/16 05:55 AST 31 U/L (13-39) 06/17/16 05:55 ALT 40 U/L (7-52) 06/17/16 05:55 Alkaline Phosphatase 59 U/L (34-104) 06/17/16 05:55 Total Protein 5.8 gm/dL (6.0-8.3) L 06/17/16 05:55 Albumin 3.3 gm/dL (3.7-5.3) L 06/17/16 05:55 Globulin 2.5 gm/dL 06/17/16 05:55 Albumin/Globulin Ratio 1.3 (1.0-1.8) 06/17/16 05:55 Lipase 53 U/L (11-82) 06/15/16 16:18 Urine Source CLEAN C 06/15/16 17:34 Urine Color YELLOW 06/15/16 17:34 Urine Clarity CLEAR (CLEAR) 06/15/16 17:34 Urine pH 7.0 06/15/16 17:34 Ur Specific [place] 1.015 (1.005-1.030) 06/15/16 17:34 Urine Protein NEGATIVE mg/dL (NEGATIVE) 06/15/16 17:34 Urine Glucose (UA) NEGATIVE mg/dL (NEGATIVE) 06/15/16 17:34 Urine Ketones NEGATIVE mg/dL (NEGATIVE) 06/15/16 17:34 Urine Blood NEGATIVE (NEGATIVE) 06/15/16 17:34 Urine Nitrate NEGATIVE (NEGATIVE) 06/15/16 17:34 Urine Bilirubin NEGATIVE (NEGATIVE) 06/15/16 17:34 Urine Urobilinogen 0.2 E.U./dL (0.2 - 1.0) 06/15/16 17:34 Ur Leukocyte Esterase TRACE (NEGATIVE) H 06/15/16 17:34 Urine RBC NONE SEEN /hpf (0-5) 06/15/16 17:34 Urine WBC 2-5 /hpf (0-5) 06/15/16 17:34 Ur Epithelial Cells NONE SEEN /lpf (FEW) 06/15/16 17:34 Urine Bacteria NONE SEEN /hpf (NONE SEEN) 06/15/16 17:34 Urine Test NEGATIVE 06/15/16 17:34 - Physical Exam Vitals and I&O: Vital Signs Temp 98.5 F 06/18/16 12:00 Pulse 80 06/18/16 12:00 Resp 18 06/18/16 12:00 BP 108/72 06/18/16 12:00 Pulse Ox 98 06/18/16 12:00 Intake & Output 06/17/16 06/18/16 06/18/16 18:59 06:59 18:59 Intake Total 1100 250 Balance 1100 250 Intake: Oral 1100 250 Other: # Voids 3 2 # Bowel Movements 0 Stool Characteristics Soft Active Medications: Current Medications Dextrose/Sodium Chloride (D5-0.45ns) 1,000 mls @ 80 mls/hr IV .[id number] [facility] Stop: 08/15/16 17:38 Last Admin: 06/17/16 08:07 Dose: Not Given Morphine Sulfate (Morphine) 3 mg IV Q3H PRN PRN Reason: Pain (Mild) Stop: 08/14/16 20:29 Last Admin: 06/18/16 06:09 Dose: 3 mg Ondansetron HCl (Zofran) 4 mg IV Q6H PRN PRN Reason: nausea/vomiting Stop: 08/14/16 19:59 Last Admin: 06/17/16 10:57 Dose: 4 mg - Procedures Procedures: Procedures Procedure Code Date LAPAROSCOPIC CHOLECYSTECTOMY 95761 06/15/16 RESECTION OF GALLBLADDER, PERCUTANEOUS ENDOSCOPIC APPROACH [id number] 06/15/16 Assessment/Plan - Problem List Patient Problems: All Active Problems Gall stones (Acute) K80.20 S/P laparoscopic cholecystectomy (Acute) Z90.49
[2016-06-18] MEDS ORDERED: Fleet Enema 135 mL RC ONE (12:45)
--- NOTE | 2016-06-20 15:27 | Pathology Report ---
[id number] Collection Date: 06/16/2016 Surgeon: Dr. Clive Holman Specimen Description: Gallbladder Gross Description: Received in formalin is a distended gallbladder measuring 9 x 3 x 2 cm with a smooth, oleary-castillo outer surface. Opening the gallbladder reveals multiple grayish-green gallstones, ranging from 0.2 to 1.5 cm in greatest dimension. The gallbladder mucosa and wall range from 0.1 to 0.2 cm in thickness. [employer] sections are submitted in one cassette. Gross Pathologic Diagnosis: Cholelithiasis, gallbladder. Microscopic Description: The histologic sections show gallbladder wall and mucosa with chronic inflammation present consisting of lymphocytes and plasma cells. Diagnosis: Chronic cholecystitis, gallbladder. [facility]# [id number] [facility]
--- NOTE | 2016-07-21 02:36 | Discharge Summary ---
DATE OF DISCHARGE: 06/18/2016 FINAL DIAGNOSES: Acute calculous cholecystitis status post laparoscopic cholecystectomy. HOSPITAL COURSE: This is a 31-year-old female who was admitted for evaluation of the right upper quadrant abdominal pain. The patient was evaluated by GI and General Surgery. The patient underwent a HIDA scan which was negative. Ultrasound showed gallstones which was suggestive of cholelithiasis without any dilatation of common bile duct. GI and General Surgery recommended the patient appeared to have a symptomatic gallstone and will benefit from cholecystectomy. Discussed with the patient regarding plan of care. She agreed with the laparoscopic cholecystectomy. Subsequently, the patient underwent surgery. Postoperatively, the patient did well. The patient tolerated diet well. So, the patient was cleared for discharge with outpatient surgery followup. Overall was rather uneventful. DISCHARGE CONDITION: Stable. DISCHARGE MEDICATIONS: Please see medication reconciliation. DISCHARGE INSTRUCTION: To follow up with General Surgery as an outpatient for postop. JOB# [id number]
== END 2016-06-18 15:20 | disposition home or self-care (01) | DRG 263 ==
LOC: ER 15:39 → MSI 19:00
PROVIDERS: ADMIT Family Medicine; ATTEND Family Medicine
PROC: 0FT44ZZ Resection of Gallbladder, Percutaneous Endoscopic Approach (ICD-10-PCS; principal; 2016-06-17)
DX: K80.00 Calculus of gallbladder with acute cholecystitis without obstruction (principal)
CPT/HCPCS: 36415-UA; 76700-TC; 78226-TC; 80053-TC; 80076-TC; 81001-TC; 81025-TC; 83036-90; 83690-TC; 85025-TC; 88304-TC; 90782; 90799; 93005; 96374; A9537; J0690; J2001; J2250; J2405; J2704; J2710; J7030; X6024; X6258; Z7610